=== PATIENT | male | born 1955 | race Caucasian/White ===

== ENCOUNTER 2018-09-28 11:05 | Emergency (ER) | payer BC ==
--- OUTSIDE RECORDS SUMMARY | 2018-09-28 11:21 | XMS REPORT | Continuity of Care Document ---
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 Payers Date Identification Numbers Payment Provider Subscriber Policy Number: [id number] [facility] Aditya Ospina PayID: [id number] [address] [place] [address] Advance Directives Description No Information Available Problems Active Problems Provider Date Hearing loss Dale Eller MD Onset: 04/06/2009 Malignant tumor of prostate Dale Eller MD Onset: 07/05/2007 Family history of ischemic heart disease Dale Eller MD Onset: 01/24 Gastroesophageal reflux disease Dale Eller MD Onset: 01/24/2005 History of malignant neoplasm of prostate Dale Eller MD Onset: Family History Date Family Member(s) Observation Comments Father due to Cancer, Lung () - smoker lung ca/mets Mother Alive And Well 86 as of 2016 First Brother Cancer, Prostate Paternal Uncles [place] Paternal Aunts due to [place] () Paternal Aunts due to Sudden () - age 30 Social History Type Date Description Comments Sex Unknown Marital Status Lives With Spouse Lives With Sons 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 ELIZA Fernandez ETOH Use Occasionally consumes alcohol Tobacco Use Start: Unknown Patient has never smoked Allergies, Adverse Reactions, Alerts Description No Known Drug Allergies Medications Active Medications SIG Qnty Indications Ordering Provider Date Glucosamine every day DongJose Eduardo, 04/11/2018 Chondroitin 1500 DO Complex 1500Com Capsules Omeprazole take 1 capsule 30caps K21.9 Digiovanna, 04/16/2013 20mg once daily as MD Dale Capsules needed for heartburn History Medications Aspirin Ec 1 by mouth every day Z82.49 Unknown - 04/26/2018 81mg Tablets Immunizations CPT Code Status Date Vaccine Reaction Lot # [id number] Given 03/25/2018 Influenza Virus Vaccine,Quadrivalent,Split,Preser v Free, 0.5mL,Im Q2035 Given 03/22/2017 Afluria Imunization [facility] Q2035 Given 03/22/2017 Afluria Imunization [facility] 91235 Given 04/25/2016 Tetanus And Diptheria Toxoids For [id number] Adult Use-preservative free Q2035 Given 03/01/2016 Afluria Imunization [facility] Q2039 Given 04/21/2015 Flu Vaccine NOS Q2037 Given 04/21/2015 Fluvirin Immunization [facility] 62192 Given 02/11/2013 Afluria Or Fluvirin Flu Vac Intramuscular 17125 Given 02/26/2012 Afluria Or Fluvirin Flu Vac Intramuscular 71076 Given 03/31/2010 Afluria Or Fluvirin Flu Vac AT [facility] Intramuscular 75115 Given 12/28/2003 Immunization Td 7 Yrs Or Older Vital Signs Date Vital Result Comment 09/09/2018 9:24am Weight 182.00 lb Heart Rate 74 /min BP Systolic 120 mmHg BP Diastolic 80 mmHg Respiratory Rate 18 /min 04/26/2018 8:10am Weight 180.00 lb Heart Rate 66 /min BP Systolic 120 mmHg BP Diastolic 72 mmHg Respiratory Rate 18 /min Height 72 inches 6'0" BMI (Body Mass Index) 24.4 kg/m2 04/11/2018 10:27am Body Temperature 98.5 F Weight 182.00 lb Heart Rate 84 /min BP Systolic 152 mmHg BP Diastolic 90 mmHg Respiratory Rate 18 /min Height 72 inches 6'0" BMI (Body Mass Index) 24.7 kg/m2 04/25/2017 8:05am Weight 185.00 lb Heart Rate 74 /min BP Systolic 130 mmHg BP Diastolic 80 mmHg Respiratory Rate 18 /min Height 72 inches 6'0" BMI (Body Mass Index) 25.1 kg/m2 08/11/2016 3:23pm Weight 185.31 lb Heart Rate 84 /min BP Systolic 140 mmHg BP Diastolic 70 mmHg Respiratory Rate 18 /min Height 72 inches 6'0" O2 % BldC Oximetry 98 % BMI (Body Mass Index) 25.1 kg/m2 04/25/2016 8:13am Weight 187.00 lb Heart Rate 74 /min BP Systolic 120 mmHg BP Diastolic 80 mmHg Respiratory Rate 18 /min Height 72.5 inches 6'0.50" BMI (Body Mass Index) 25.0 kg/m2 04/21/2015 8:12am Weight 189.19 lb Heart Rate 78 /min BP Systolic 130 mmHg BP Diastolic 72 mmHg Respiratory Rate 18 /min Height 72.1 inches 6'0.10" BMI (Body Mass Index) 25.6 kg/m2 09/25/2014 3:56pm Weight 194.31 lb Heart Rate 76 /min BP Systolic 122 mmHg BP Diastolic 72 mmHg Respiratory Rate 18 /min Height 72.1 inches 6'0.10" BMI (Body Mass Index) 26.3 kg/m2 04/17/2014 8:17am BP Systolic 130 mmHg L at rest BP Diastolic 78 mmHg L at rest 04/17/2014 8:17am Weight 183.00 lb Heart Rate 72 /min BP Systolic 132 mmHg L/Reg BP Diastolic 86 mmHg L/Reg Respiratory Rate 17 /min Height 72.1 inches 6'0.10" 09/09/2013 10:42am Weight 188.00 lb Heart Rate 88 /min BP Systolic 138 mmHg BP Diastolic 92 mmHg Respiratory Rate 18 /min Height 72.25 inches 6'0.25" 08/25/2013 3:29pm Weight 187.00 lb Heart Rate 80 /min BP Systolic 134 mmHg BP Diastolic 84 mmHg Respiratory Rate 18 /min Height 72.25 inches 6'0.25" 04/16/2013 8:10am BP Systolic 116 mmHg L seated at rest BP Diastolic 78 mmHg L seated at rest 04/16/2013 8:10am Weight 183.25 lb Down 3# Heart Rate 74 /min BP Systolic 136 mmHg L/Reg BP Diastolic 80 mmHg L/Reg Respiratory Rate 17 /min Height 72.25 inches 6'0.25" 02/11/2013 10:22am Weight 186.00 lb Up 4# Heart Rate 76 /min BP Systolic 148 mmHg R/Reg BP Diastolic 84 mmHg R/Reg Respiratory Rate 19 /min Height 72.1 inches 6'0.10" Results Test Date Facility Test Result H/L Range Note Basic (BMP) 04/30/2018 [facility] Sodium 142 mmol/L 135-146 1 Potassium 4.2 mmol/L 3.5-5.2 Chloride# 103 mmol/L 97-110 2 Carbon Dioxide 30 mmol/L 24-34 Glucose 93 mg/dL 70-105 BUN 15 mg/dL 6-26 Creatinine 0.8 mg/dL 0.5-1.4 Calcium 9.0 mg/dL 8.5-10.2 Non [facility] Egfr >60 >60 3 [place] Egfr >60 >60 4 Anion Gap 9 mmol/L 5-15 5 Lipid 04/30/2018 [facility] Cholesterol 208 mg/dL High 50-199 Triglycerides 90 mg/dL 30-200 HDL 52 mg/dL 29- 6 Chol/ HDL Ratio 4.0 ratio 4.0-6.7 VLDL 18 mg/dL 2-29 LDL (Calc) 138 mg/dL High 20-99 7 Laboratory test finding 04/11/2018 [facility] Troponin I <0.06 ng/mL (0.00- 0.10) 8 CPK 67 U/L 12-199 Basic ([facility]) 04/25/2017 [facility] Sodium 143 mmol/L 135-146 9 Potassium 4.0 mmol/L 3.5-5.2 Chloride# 104 mmol/L 97-110 10 Carbon Dioxide 29 mmol/L 24-34 Glucose 89 mg/dL 70-105 Creatinine 0.9 mg/dL 0.5-1.4 Calcium 9.2 mg/dL 8.5-10.2 Non [place] Egfr >60 >60 11 [place] Egfr >60 >60 12 Anion Gap 10 mmol/L 7-16 13 BUN 12 mg/dL 6-26 Basic (BMP) 04/25/2016 [facility] Sodium 139 mmol/L 134-142 Potassium 4.0 mmol/L 3.5-5.2 Chloride 104 mmol/L 97-109 Carbon Dioxide 31 mmol/L 24-34 Glucose 92 mg/dL 70-105 BUN 14 mg/dL 6-26 Creatinine 0.8 mg/dL 0.5-1.4 Calcium 8.6 mg/dL 8.5-10.2 Anion Gap 8 mmol/L 6-14 Non [place] Egfr >60 >60 14 [place] Egfr >60 >60 15 Lipid 04/25/2016 [facility] Cholesterol 191 mg/dL 50-199 Triglycerides 102 mg/dL 30-200 HDL 50 mg/dL - 16 Chol/ HDL Ratio 3.8 ratio Low 4.0-6.7 VLDL 20 mg/dL 2-29 LDL (Calc) 121 mg/dL High 20-99 17 Basic (BMP) 04/21/2015 [facility] Sodium 140 mmol/L 134-142 18 Potassium 4.2 mmol/L 3.5-5.2 Chloride 105 mmol/L 97-109 Carbon Dioxide 30 mmol/L 24-34 Glucose 87 mg/dL 70-105 BUN 14 mg/dL 6- Creatinine 0.9 mg/dL 0.5-1.4 Calcium 8.7 mg/dL 8.5-10.2 Anion Gap 9 mmol/L 6- Non [place] Egfr >60 >60 19 [place] Egfr >60 >60 20 Lipid 04/21/2015 [facility] Cholesterol 194 mg/dL 50-199 Triglycerides 120 mg/dL 30-200 HDL 53 mg/dL 21 Chol/ HDL Ratio 3.7 ratio Low 4.0-6.7 VLDL 24 mg/dL 2- LDL (Calc) 117 mg/dL High - 22 Laboratory test finding 04/17/2014 N2N/CCD Import Anion Gap 9 mEq/L 8- 16 Antibody Detection See Note 23 BUN 19 mg/dL High 7-18 BUN/Creat 21.1 ratio Calcium 8.5 mg/dL 8.5-10.1 Carbon Dioxide 28 mmol/L 21-32 Chloride 108 mmol/L High 98-107 Creatinine 0.9 mg/dL 0.6-1.3 Glom Filtration Rate, Estimate >60 mL/min >60 Glucose 88 mg/dL 74-106 Hepatitis B Surface Antigen Nonreactive Nonreactive 24 Hepatitis C Antibody Nonreactive Nonreactive If >60 mL/min >60 25 Magnesium 2.2 mg/dL 1.8-2.4 26 Potassium 4.0 mmol/L 3.5-5.1 Signal/Cutoff ratio < 0.02 <0.80 27 Sodium 141 mmol/L 136-145 LDL Cholesterol Profile 04/17/2014 N2N/CCD Import Cholesterol 194 mg/dL < 200 28 HDL Cholesterol 50 mg/dL > 40 29 LDL-Cholesterol 125 mg/dL < 100 30 Triglycerides 96 mg/dL < 150 31 Laboratory test finding 09/09/2013 N2N/CCD Import Antibody Detection See Note 32 HBSAb Interpretation Reactive Nonreactive High Hepatitis B Surface Antibody > 1000.0 mIU/mL <1.0 33 Hepatitis C Antibody Nonreactive Nonreactive Signal/Cutoff ratio < 0.02 <0.80 34 Laboratory test finding 04/16/2013 N2N/CCD Import Anion Gap 6 mEq/L Low 8 -16 BUN 14 mg/dL 5-23 BUN/Creat 17.5 ratio Calcium 8.5 mg/dL 8.5-10.1 Carbon Dioxide 32 mEq/L High 18-29 Chloride 105 mmol/L 98-107 Creatinine 0.8 mg/dL 0.5-1.4 Glom Filtration Rate, Estimate >60 mL/min >60 Glucose 89 mg/dL 76-115 If >60 mL/min >60 35 Magnesium 2.4 mg/dL High 1.7-2.3 36 Potassium 4.2 mmol/L 3.5-5.1 Sodium 139 mmol/L 136-145 1 Updated reference range on new analyzer 2 Updated reference range on new analyzer 3 Concerning GFR Guidelines: Normal function or mild renal disease, if clinically at risk: >/=60 mL/min Moderately decreased: 30-59 Severely decreased: 15-29 Renal failure: <15 Glomerular Filtration Rate (GFR) is estimated based on the MDRD equation, which assumes a steady state for creatinine as recommended by the National Kidney Disease Education Program in conjunction with the National Institutes of Health and the National Kidney Foundation. Clinical conditions in which it may be necessary to measure GFR by using clearance methods include extremes of age and body size, severe malnutrition or obesity, diseases of skeletal muscle, paraplegia or quadriplegia, vegetarian diet, rapidly changing kidney function, and calculation of the dose of potentially toxic drugs that are excreted by the kidneys. 4 Concerning GFR Guidelines for Americans: Normal function or mild renal disease, if clinically at risk: >/=60 mL/min Moderately decreased: 30-59 Severely decreased: 15-29 Renal failure: <15 5 Updated Reference Range 6 Per NCEP ATP III Guidelines: Results lower than 40 mg/dL are suggestive of increased risk for coronary artery disease. Results > or=to 60 mg/dL are considered a negative risk factor. 7 Per NCEP ATP III Guidelines: Normal Population <130 Patients with medical conditions: CHD/DM Optimal: <100 Borderline high: 130-159 High: 160-189 Very high: >189 8 TROPONIN LEVELS TWO TIMES THE UPPER LIMIT OF NORMAL ARE MORE PREDICTIVE OF MYOCARDIAL INJURY THAN LESSER ELEVATIONS. ([facility] 361:9, 2009) Unless otherwise specified, testing performed by [facility] [address] [place] [address] [id number] 9 Updated reference range on new analyzer 10 Updated reference range on new analyzer 11 Concerning GFR Guidelines: Normal function or mild renal disease, if clinically at risk: >/=60 mL/min Moderately decreased: 30-59 Severely decreased: 15-29 Renal failure: <15 Glomerular Filtration Rate (GFR) is estimated based on the MDRD equation, which assumes a steady state for creatinine as recommended by the National Kidney Disease Education Program in conjunction with the National Institutes of Health and the National Kidney Foundation. Clinical conditions in which it may be necessary to measure GFR by using clearance methods include extremes of age and body size, severe malnutrition or obesity, diseases of skeletal muscle, paraplegia or quadriplegia, vegetarian diet, rapidly changing kidney function, and calculation of the dose of potentially toxic drugs that are excreted by the kidneys. 12 Concerning GFR Guidelines for Americans: Normal function or mild renal disease, if clinically at risk: >/=60 mL/min Moderately decreased: 30-59 Severely decreased: 15-29 Renal failure: <15 13 Updated reference range on new analyzer 14 Concerning GFR Guidelines: Normal function or mild renal disease, if clinically at risk: >/=60 mL/min Moderately decreased: 30-59 Severely decreased: 15-29 Renal failure: <15 Glomerular Filtration Rate (GFR) is estimated based on the MDRD equation, which assumes a steady state for creatinine as recommended by the National Kidney Disease Education Program in conjunction with the National Institutes of Health and the National Kidney Foundation. Clinical conditions in which it may be necessary to measure GFR by using clearance methods include extremes of age and body size, severe malnutrition or obesity, diseases of skeletal muscle, paraplegia or quadriplegia, vegetarian diet, rapidly changing kidney function, and calculation of the dose of potentially toxic drugs that are excreted by the kidneys. 15 Concerning GFR Guidelines for Americans: Normal function or mild renal disease, if clinically at risk: >/=60 mL/min Moderately decreased: 30-59 Severely decreased: 15-29 Renal failure: <15 16 Per NCEP ATP III Guidelines: Results lower than 40 mg/dL are suggestive of increased risk for coronary artery disease. Results > or=to 60 mg/dL are considered a negative risk factor. 17 Per NCEP ATP III Guidelines: Normal Population <130 Patients with medical conditions: CHD/DM Optimal: <100 Borderline high: 130-159 High: 160-189 Very high: >189 18 Fastin hours 19 Concerning GFR Guidelines: Normal function or mild renal disease, if clinically at risk: >/=60 mL/min Moderately decreased: 30-59 Severely decreased: 15-29 Renal failure: <15 Glomerular Filtration Rate (GFR) is estimated based on the MDRD equation, which assumes a steady state for creatinine as recommended by the National Kidney Disease Education Program in conjunction with the National Institutes of Health and the National Kidney Foundation. Clinical conditions in which it may be necessary to measure GFR by using clearance methods include extremes of age and body size, severe malnutrition or obesity, diseases of skeletal muscle, paraplegia or quadriplegia, vegetarian diet, rapidly changing kidney function, and calculation of the dose of potentially toxic drugs that are excreted by the kidneys. 20 Concerning GFR Guidelines for Americans: Normal function or mild renal disease, if clinically at risk: >/=60 mL/min Moderately decreased: 30-59 Severely decreased: 15-29 Renal failure: <15 21 Per NCEP ATP III Guidelines: Results lower than 40 mg/dL are suggestive of increased risk for coronary artery disease. Results > or=to 60 mg/dL are considered a negative risk factor. 22 Per NCEP ATP III Guidelines: Normal Population <130 Patients with medical conditions: CHD/DM Optimal: <100 Borderline high: 130-159 High: 160-189 Very high: >189 23 No reportable results 24 HBsAg not detected; does not exclude the possibility of exposure to or early acute infections with HBV. 25 Note: Persistent reduction for 3 months or more in an eGFR <60 mL/min/1.73 m2 defines CKD. Patients with eGFR values >/=60 mL/min/1.73 m2 may also have CKD if evidence of persistent proteinuria is present. The original MDRD equation for estimated GFR is not valid for patients less than 18 years of age. Additional information may be found at www.kdoqi.org. 26 FASTING 27 Antibodies to HCV not detected; does not exclude early acute HCV infection. 28 Reference Guidelines*: Desirable: ........... < 200 mg/dL Borderline High: ..... 200-239 mg/dL High: ................ >=240 mg/dL * The National Cholesterol Education Program (NCEP) 29 Reference Guidelines*: Low HDL: ..... < 40 mg/dL Normal: ..... 40-60 mg/dL Desirable: ... > 60 mg/dL *The National Cholesterol Education Program(NCEP) 30 Reference Guidelines*: Optimal:........... <100 mg/dL Near Optimal....... 100-129 mg/dL Borderline High.... 130-159 mg/dL High............... 160-189 mg/dL Very High.......... >=190 mg/dL * Source: National Cholesterol Education Program ( NCEP) 31 Reference Guidelines*: Normal: ............. < 150 mg/dL Borderline High: .... 150-199 mg/dL High: ............... 200-499 mg/dL Very High: .......... > 500 mg/dL * Source: National Cholesterol Education Program (NCEP) 32 No reportable results 33 Values >10 mIU/ML considered IMMUNE 34 Antibodies to HCV not detected; does not exclude early acute HCV infection. 35 Note: Persistent reduction for 3 months or more in an eGFR <60 mL/min/1.73 m2 defines CKD. Patients with eGFR values >/=60 mL/min/1.73 m2 may also have CKD if evidence of persistent proteinuria is present. The original MDRD equation for estimated GFR is not valid for patients less than 18 years of age. Additional information may be found at www.kdoqi.org. 36 FASTING Procedures Date Code Description Status 04/11/2018 43252 Electrocardiogram Complete Completed 08/24/2015 04235951 Colonoscopy Completed 09/25/2014 31025 X-Ray Spine Cervical, 6 Or More Views Completed 04/17/2014 96265 Electrocardiogram Complete Completed 04/16/2013 19575 Screening Hearing Test Completed Encounters Type Date Location Provider Dx Diagnosis Office Visit 04/26/2018 [facility] Dale lEler, Z00.00 Encntr for general 8:15a MD adult medical exam w/o abnormal findings Z85.46 Personal history of malignant neoplasm of prostate R07.9 Chest pain, unspecified Z82.49 Family hx of ischem heart dis and oth dis of the circ sys M77.11 Lateral epicondylitis, RIGHT elbow K21.9 Gastro-esophageal reflux disease without esophagitis Office Visit 04/11/2018 10:30a [facility] Madelyn Lutz PA R07.9 Chest pain, unspecified R00.2 Palpitations R94.31 Abnormal electrocardiogram [ECG] [EKG] Office Visit 04/25/2017 8:15a [facility] Dale Eller MD Z00.00 Encntr for general adult medical exam w/o abnormal findings K21.9 Gastro-esophageal reflux disease without esophagitis Z85.46 Personal history of malignant neoplasm of prostate Z82.49 Family hx of ischem heart dis and oth dis of the circ sys M54.2 Cervicalgia Office Visit 08/11/2016 3:30p [facility] Dale Eller MD R00.2 Palpitations R23.2 [place] Office Visit 04/25/2016 8:15a [facility] Dale Eller MD Z00.00 Encntr for general adult medical exam w/o abnormal findings Z85.46 Personal history of malignant neoplasm of prostate K21.9 Gastro-esophageal reflux disease without esophagitis Z82.49 Family hx of ischem heart dis and oth dis of the circ sys Z23 Encounter for immunization Office Visit 04/21/2015 8:15a [facility] Dale Eller MD Z00.00 Encntr for general adult medical exam w/o abnormal findings K21.9 Gastro-esophageal reflux disease without esophagitis C61 Malignant neoplasm of prostate Z82.49 Family hx of ischem heart dis and oth dis of the circ sys Z12.11 Encounter for screening for malignant neoplasm of colon E78.0 Pure hypercholesterolemia M54.2 Cervicalgia M54.5 Low back pain Z23 Encounter for immunization Office Visit 09/25/2014 4:00p [facility] Amada Eller, [employer] 847.0 Sprains & Strains Neck Plan of Treatment Future Appointment(s):05/01/2019 8:30 am - Dale Eller MD at [facility]2018 - Dale Eller, MDM54.2 CervicalgiaNew Orders:Physical Therapy, Ordered: 09/09/18Follow up:Start PT - order faxed
[2018-09-28 11:36] VITALS: BP 126/72
--- NOTE | 2018-09-28 12:06 | UC ---
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 Thinks it must have been there since yesterday. " -he tried to take the tic out himself but the head is stuck. he dug in there trying to get it out but couldnt and decided to come in. -not engorged. no rash. no F/c/arthralgias. - History of Current Complaint Chief Complaint: UCGeneralIllness Time Seen by Provider: 09/28/18 11:58 Stated Complaint: TICK BITE Pain Intensity: 0 - Allergy/Home Medications Allergies/Adverse Reactions: Allergies Allergy/AdvReac Type Severity Reaction Status Date / Time No Known Allergies Allergy Verified 09/28/18 11:33 PMH/Surg Hx/FS Hx/Imm Hx Previously Healthy: Yes - Surgical History Surgical History: Yes Surgery Procedure, Year, and Place: appy. hernia repair - Family History Known Family History: Positive: Hypertension - Social History Alcohol Use: Occasionally Substance Use Type: None Smoking Status (MU): Former Smoker Review of Systems All Other Systems Reviewed And Are Negative: Yes Constitutional: Positive: Negative Skin: Positive: Other - see above Eyes: Positive: Negative ENT: Positive: Negative Respiratory: Positive: Negative Cardiovascular: Positive: Negative Gastrointestinal: Positive: Negative Motor: Positive: Negative Neurovascular: Positive: Negative Musculoskeletal: Positive: Negative Neurological: Positive: Negative Is Patient Immunocompromised?: No Physical Exam Triage Information Reviewed: Yes Appearance: Well-Appearing, No Pain Distress, Well-Nourished - very pleasant Vital Signs: Initial Vital Signs Temp 97.8 F 09/28/18 11:30 Pulse 65 09/28/18 11:30 Resp 14 09/28/18 11:30 BP 126/72 09/28/18 11:30 Pulse Ox 100 09/28/18 11:30 Vital Signs Reviewed: Yes Respiratory Exam: Normal Respiratory: Positive: Lungs clear, Normal breath sounds, No respiratory distress, No accessory muscle use Cardiovascular Exam: Normal Cardiovascular: Positive: RRR Skin: Positive: Other - left posterior thigh w/ 3 mm open woound w/ embedded head of tick. no bleeding. mild some surrounding erythema. no dc. no streaks. cool. Course/Dx - Course Course Of Treatment: -reassured that the tic will work its way out, -will give 200mgs doxy for prophylactic dose -he is very thankful - Differential Diagnoses - Skin Complaint Differential Diagnoses: Cellulitis, Tick Born Illness - Diagnoses Provider Diagnosis: Tick bite of left lower leg Discharge - Sign-Out/Discharge Documenting (check all that apply): Patient Departure All imaging exams completed and their final reports reviewed: No Studies - Discharge Plan Condition: Stable Disposition: HOME Prescriptions: DOXYcycline CAP(*) [DOXYcycline 100MG CAP(*)] 200 mg PO ONCE 1 Days #2 cap Patient Education Materials: Tick Bite (ED) Referrals: Dale Eller MD [Primary Care Provider] - Additional Instructions: We are giving you a 1 time dose of antibiotic. Take 200 mgs of doxycycline at once x 1 dose. The head of the tic will work it's way out. - Billing Disposition and Condition Condition: STABLE Disposition: Home
== END 2018-09-28 12:42 | disposition home or self-care (01) ==
LOC: UCCORT 11:05
DX: S70.362A Insect bite (nonvenomous), left thigh, initial encounter (principal); W57.XXXA Bitten or stung by nonvenomous insect and other nonvenomous arthropods, initial encounter; Z87.891 Personal history of nicotine dependence
CPT/HCPCS: 99212; G0463